=== PATIENT | male | born 1960 | race Hispanic/Latino ===

== ENCOUNTER 2018-05-29 16:58 | Emergency (ER) | payer SELFPAY ==
[2018-05-29 17:07] VITALS: PULSE 69
--- NOTE | 2018-05-29 18:08 | C.PDOC ---
History Of Present Illness 57 y/o male, w/PMhx of anxiety, presents to the ER complaining of changes in vision which began at 11:00 am today. Patient states that he sees " something in the corner of my right eye" when he moves his head quickly and changes his view. Currently, patient denies having changes in vision, CP, SOB, fever,and chills. Time Seen by Provider: 05/29/18 17:58 Chief Complaint (Nursing): Dizziness/Lightheaded History Per: Patient History/Exam Limitations: no limitations Onset/Duration Of Symptoms: Hrs Current Symptoms Are (Timing): Gone Severity: Moderate Past Medical History Reviewed: Historical Data, Nursing Documentation, Vital Signs Vital Signs: Last Vital Signs Temp 97.5 F L 05/29/18 17:04 Pulse 69 05/29/18 17:04 Resp 20 05/29/18 17:04 BP 164/85 H 05/29/18 17:04 Pulse Ox 99 05/29/18 17:04 - Medical History PMH: Anxiety, Bipolar Disorder Surgical History: No Surg Hx Family History: States: No Known Family Hx - Social History Hx Alcohol Use: No Hx Substance Use: No - Immunization History Hx Tetanus Toxoid Vaccination: No Hx Influenza Vaccination: No Hx Pneumococcal Vaccination: No Review Of Systems Except As Marked, All Systems Reviewed And Found Negative. Constitutional: Negative for: Fever, Chills Eyes: Positive for: Vision Change (currently resolved) Cardiovascular: Negative for: Chest Pain Respiratory: Negative for: Shortness of Breath Physical Exam - Physical Exam Appears: Non-toxic, Other (pleasant, strange effect) Skin: Normal Color, Warm, Dry Head: Atraumatic, Normacephalic Eye(s): bilateral: Normal Inspection, PERRL, EOMI, Other (normal vision, no conjunctival pallor) Nose: Normal Oral Mucosa: Moist Neck: Supple Chest: Symmetrical Cardiovascular: Rhythm Regular Respiratory: Normal Breath Sounds, No Rales, No Rhonchi, No Wheezing Neurological/Psych: Oriented x3, Normal Speech ED Course And Treatment O2 Sat by Pulse Oximetry: 99 (RA) Pulse Ox Interpretation: Normal Medical Decision Making Medical Decision Making: psych, anxiety "occasional see's something in a vision field, when moving head fast, but not now" LOW susp of sig anemia or CVA opt f/u ok per pt with informed consent. Disposition Doctor Will See Patient In The: Office Counseled Patient/Family Regarding: Studies Performed, Diagnosis - Disposition Referrals: Lew Ignacio MD [Staff Provider] - Disposition: HOME/ ROUTINE Disposition Time: 18:08 Condition: GOOD Additional Instructions: no acute findings follow-up with your Psychiatrist as usual You may be referred to Ophalmology through our outpatient [facility] as needed Instructions: Anxiety, Adult (DC) Forms: [employer] (Kyrgyz) - Clinical Impression Clinical Impression: Anxiety, Vision disturbance - Scribe Statement The provider has reviewed the documentation as recorded by the Scribe Waldo Padron Provider Attestation: All medical record entries made by the Scribe were at my direction and per sonally dictated by me. I have reviewed the chart and agree that the record accurately reflects my personal performance of the history, physical exam, medical decision making, and the department course for this patient. I have also personally directed, reviewed, and agree with the discharge instructions and disposition.
[2018-05-29 18:17] VITALS: BP 126/69; RESP 18; TEMP 98
[2018-05-29 18:38] VITALS: O2SAT 99
== END 2018-05-29 18:15 | disposition home or self-care (01) ==
LOC: C.ER 16:58
DX: F41.9 Anxiety disorder, unspecified (principal); H53.9 Unspecified visual disturbance